=== PATIENT | female | born 1955 | race Caucasian/White ===

== ENCOUNTER 2016-10-01 19:05 | Emergency (ER) | payer BC ==
--- NOTE | 2016-10-01 19:14 | PDOC ---
History of Present Illness - General Chief Complaint: Injury Stated Complaint: LEFT FOREARM PAIN, SWELLING, BRUISING Time Seen by Provider: 10/01/16 19:13 History Source: Patient Exam Limitations: No Limitations - History of Present Illness Initial Comments: 10/01/16 19:29 This is a 61-year-old female who comes in complaining of falling off the elliptical while exercising yesterday. Patient said she did not hit her head she did not pass out and she denied any other injuries other than she fell and bruised her left forearm. Patient said it is painful and the swollen and comes in for evaluation. Patient said there was a small amount of bleeding secondary to an abrasion and she put a Band-Aid over it but her tetanus status is greater than 10 years. PAST MEDICAL HISTORY: no significant history PAST SURGICAL HISTORY: no significant history FAMILY HISTORY: no pertinant history SOCIAL HISTORY: Pt lives with family and is employed. MEDICATIONS: reviewed ALLERGIES: As per nursing notes Review of Systems General: No fevers or chills, no weakness, no weight loss HEENT: No change in vision. No sore throat,. No ear pain CardioVascular: No chest pain or shortness of breath Respiratory:No cough, or wheezing. Gastrointestinal: no nausea, vomitting, diarrhea or constipation, No rectal bleeding Genitourinary: No dysuria, hematuria, or frequency Musculoskeletal: No joint or muscle pain or swelling Neurologic: No headache, vertigo, dizziness or loss of consciousness Psychiatric: nor depression Skin: No rashes or easy bruising Endocrine: no increased thirst or abnormal weight change Allergic: no skin or latex allergy All other systems reviewed and normal GENERAL: The patient is awake, alert, and fully oriented, in no acute distress. HEAD: Normal with no signs of trauma. EYES: Pupils equal, round and reactive to light, extraocular movements intact, sclera anicteric, conjunctiva clear. EXTREMITIES: Left forearm there is a large contusion over the dorsum of the left forearm there is some mild bony tenderness but no deformity neurovascular distal is intact. There is a small associated abrasion with the contusion NEUROLOGICAL: Normal speech, normal gait. PSYCH: Normal mood, normal affect. SKIN: Warm, Dry, normal turgor, no rashes or lesions noted. 10/01/16 19:31 X-ray no acute fracture or dislocation reviewed by me assessment and plan: This is a 61-year-old female comes in status post falling off an elliptical yesterday with a contusion on her left forearm. Patient's tetanus was not up-to- date she got a tetanus shot and x-rays that were negative for any acute pathology. Patient discharged will follow-up with her primary care doctor as needed. Past History - Past Medical History Allergies/Adverse Reactions: Allergies Allergy/AdvReac Type Severity Reaction Status Date / Time No Known Allergies Allergy Verified 10/01/16 19:10 Home Medications: Ambulatory Orders Alprazolam [Xanax] 0.5 mg PO HS 10/01/16 Famotidine [Pepcid] 40 mg PO DAILY 10/01/16 - Immunization History Td Vaccination: No - Psycho/Social/Smoking Cessation Hx Anxiety: No Suicidal Ideation: No Smoking Status: No Smoking History: Never smoked Number of Cigarettes Smoked Daily: 0 *DC/Admit/Observation/Transfer Diagnosis at time of Disposition: Contusion of left forearm Qualifiers: Encounter type: initial encounter Qualified Code(s): S50.12XA - Contusion of left forearm, initial encounter Abrasion of left forearm Qualifiers: Encounter type: initial encounter Qualified Code(s): S50.812A - Abrasion of left forearm, initial encounter - Discharge Dispostion Disposition: HOME Condition at time of disposition: Stable Admit: No - Referrals Referrals: Kendell Puentes MD [Primary Care Provider] - - Patient Instructions Additional Instructions: Tylenol or Motrin as needed for pain. Return to the emergency department immediately with ANY new, persistent or worsening symptoms. Continue any medications as previously prescribed by your physician. You should follow up with your primary doctor as soon as possible regarding today's emergency department visit. . Please make sure your doctor reviews the results of your emergency evaluation. Thank you for coming to the Emergency Department today for your care. It was a pleasure to see you today. Please note that your evaluation is INCOMPLETE until you follow-up with your doctor.
[2016-10-01 19:16] VITALS: BP 124/80; PULSE 81; TEMP 97.8; BMI 23.8
[2016-10-01] MEDS ORDERED: DIPHTH,PERTUSS(ACELL),TET 0.5 ML DISP.SYRIN IM ONE (19:16)
== END 2016-10-01 19:45 | disposition home or self-care (01) ==
LOC: FER 19:05
PROC: 3E0234Z Introduction of Serum, Toxoid and Vaccine into Muscle, Percutaneous Approach (ICD-10-PCS; principal; 2016-10-01)
DX: S50.12XA Contusion of left forearm, initial encounter (principal); S50.812A Abrasion of left forearm, initial encounter; Y93.A1 Activity, exercise machines primarily for cardiorespiratory conditioning; W19.XXXA Unspecified fall, initial encounter; Y92.9 Unspecified place or not applicable
CPT/HCPCS: 73090-TC-LT; 90715; 99283-25

== ENCOUNTER → 2019-11-12 | Day surgery (SDC) | payer BC ==
--- NOTE | 2019-11-13 00:37 | OP ---
DATE OF OPERATION: 11/12/2019 PREOPERATIVE DIAGNOSIS: Left breast mass at 4 o'clock, 3 cm from the nipple, and left breast mass 9 o'clock, 10 cm from the nipple. POSTOPERATIVE DIAGNOSIS: Left breast mass at 4 o'clock, 3 cm from the nipple, and left breast mass 9 o'clock, 10 cm from the nipple. PROCEDURE: Left ultrasound guided core biopsies with clip placements. ANESTHESIA: Local. ATTENDING SURGEON: Kain Kahn MD. ESTIMATED BLOOD LOSS: Minimal. COMPLICATIONS: None. DESCRIPTION OF PROCEDURE: Patient was made aware of the risks and benefits of the procedure. Patient was placed in supine position. The left breast 4 o'clock position nodule was approached first. Under sterile conditions with 2% lidocaine for local anesthesia. A small ariadne was made in the skin using a 10 gauge suction biopsy device, via lateral approach, under ultrasound guidance 3 cores were obtained and submitted to pathology. Likewise under ultrasound guidance, a bowtie clip was placed into the biopsy region. Steri-Strips and a sterile bandage were then applied. The left 9 o'clock was then approached. Again, under sterile conditions with 2% lidocaine for local anesthesia, a small ariadne was made in the skin. Using a 10 gauge suction biopsy device, via lateral approach, under ultrasound guidance 3 cores were obtained and submitted to pathology. Likewise under ultrasound guidance, a U-shaped clip was placed into the biopsy region. Steri-Strips and a sterile bandage were then applied. The patient tolerated the procedure well. Will contact her with results. KAIN KAHN M.D. [id number]
--- NOTE | 2019-11-16 09:50 | PATH ---
Surgical Pathology Report Patient Name: EUSEBIO NORTON [facility]. Rec. #: [id number] /Age/Gender: 1955 (Age: 64) / F Account: [id number] Location: [facility] RADIOLOGY U Taken: 11/12/2019 Received: 11/12/2019 Reported: 11/16/2019 Physicians: Tom Solis M.D. Specimen(s) Received A: LEFT BREAST CORE BIOPSY 4 N3 B: LEFT BREAST CORE BIOPSY 9 N10 Clinical History Nonpalpable lesion Ultrasound findings: Suspicious Final Diagnosis A. LEFT BREAST 4:00, N+3, CORE BIOPSY: BREAST TISSUE WITH FIBROADENOMATOID CHANGE AND ASSOCIATED FIBROCYSTIC CHANGES INCLUDING SCLEROSING ADENOSIS, DILATED DUCTS, STROMAL FIBROSIS, AND MICROCALCIFICATIONS. Comment: Immunohistochemical stains (block A1) performed and interpreted at [facility] show the following results: smooth muscle myosin heavy chain and p63 highlight the myoepithelial cell layer in the areas of sclerosing adenosis. Positive and negative controls (internal if applicable) show appropriate results. B. LEFT BREAST 9:00, N+10, CORE BIOPSY BREAST TISSUE WITH FIBROADENOMA IN A BACKGROUND OF FIBROCYSTIC CHANGES INCLUDING SCLEROSING ADENOSIS AND ASSOCIATED MICROCALCIFICATIONS. Comment: Immunohistochemical stains (block B1) performed and interpreted at [facility] show the following results: smooth muscle myosin heavy chain and p63 highlight the myoepithelial cell layer in the areas of sclerosing adenosis. Positive and negative controls (internal if applicable) show appropriate results. Electronically Signed Seema Castelan M.D. Gross Description A. Received in formalin labeled "left breast 4:00, 3 cmfn," is a 2.7 x 2.2 x 0.3 cm aggregate of multiple farooq-yellow, irregular to cylindrical portions of fibroadipose tissue. The formalin is filtered and the specimen is entirely submitted in one cassette. B. Received in formalin labeled "left breast 9:00, 10 cmfn," is a 2.3 x 1.7 x 0.3 cm aggregate of multiple farooq-yellow, irregular to cylindrical portions of fibroadipose tissue. The formalin is filtered and the specimen is entirely submitted in one cassette. Time to formalin fixation: Less than one minute Total formalin fixation time: Approximately 6 hours. 11/15/2019 [facility]2019
== END | disposition home or self-care (01) ==
LOC: FRADUS-SUR 14:36
PROVIDERS: ATTEND Surgery Surgical Oncology
PROC: 0HBU3ZX Excision of Left Breast, Percutaneous Approach, Diagnostic (ICD-10-PCS; principal; 2019-11-12)
DX: D24.2 Benign neoplasm of left breast (principal); N60.12 Diffuse cystic mastopathy of left breast; N60.22 Fibroadenosis of left breast; N60.32 Fibrosclerosis of left breast; N64.89 Other specified disorders of breast; N63.23 Unspecified lump in the left breast, lower outer quadrant; N63.25 Unspecified lump in the left breast, overlapping quadrants
CPT/HCPCS: 19083; 19084; 87899; 88305-TC; 88341-TC; 88342-TC; A4648